=== PATIENT | male | born 1980 | race Caucasian/White ===

== ENCOUNTER 2022-09-11 09:09 | Emergency (ER) | payer MEDICAID ==
[2022-09-11] MEDS ORDERED: GEODON20 MG PO (09:26)
[2022-09-11] MEDS ORDERED: VERAPAMIL HCL40 MG PO (09:27)
[2022-09-11] MEDS ORDERED: IBU800 MG PO (09:27)
[2022-09-11] MEDS ORDERED: ALBUTEROL SULFAT8 MG INH (09:28)
--- OUTSIDE RECORDS SUMMARY | 2022-09-11 09:54 | XMS ---
PreManage Notification: JACK KIRK [employer] Att[employer] Events No recent Security Events currently on file CRITERIA MET - [facility] - [facility] - 2 Visits in 30 Days CARE PROVIDERS CARE, [facility]/Center: Primary Care 06/07/2022-Formerly [facility] - [facility] PHONE: Unknown [facility] PHONE: Unknown Luz Maria has no Care Guidelines for this patient. E.DMisty VISIT COUNT (12 MO.) 1 Mario Quinonez 1 Clay Garcia [address] [place] [address] and Science [place] 4 [place] 1 [facility] TOTAL 10 NOTE: Visits indicate total known visits. ED/UCC VISIT TRACKING (12 MO.) 09/11/2022 09:10 [facility] [place] TYPE: Emergency COMPLAINT: - BACK PAIN/NO INJ 08/24/2022 19:02 Clay Ferreira [place] TYPE: Emergency DIAGNOSES: - Radiculopathy, lumbar region - back pn - Back Pain 01/31/2022 14:32 [facility] TYPE: Emergency DIAGNOSES: 69980. Neck Pain 05474. Abnormal findings on diagnostic imaging of other specified body structures 01/31/2022 12:40 [facility] TYPE: Emergency DIAGNOSES: 13291. lump on neck 10586. Localized swelling, mass and lump, neck 01/03/2022 07:39 [facility] TYPE: Emergency DIAGNOSES: 48835. [facility] 328 39 yom 01/02/2022 05:17 [facility] TYPE: Psychiatric Emergency DIAGNOSES: - si - Other stimulant use, unspecified, uncomplicated - Unspecified psychosis not due to a substance or known physiological condition 11/21/2021 10:04 [facility] [place] TYPE: Psychiatric Emergency DIAGNOSES: - Unspecified mood [affective] disorder - Other stimulant dependence, uncomplicated - [facility] 11/21/2021 01:38 Mario Chavez [place] TYPE: Emergency DIAGNOSES: - Laceration without foreign body of scalp, initial encounter - Fall 09/11/2021 18:39 [facility] [place] TYPE: Psychiatric Emergency DIAGNOSES: - Unspecified psychosis not due to a substance or known physiological condition - Paranoid - Other stimulant abuse, uncomplicated 09/11/2021 16:43 Franny Mcne[facility] [place] TYPE: Psychiatric Emergency DIAGNOSES: - Depression, unspecified - Unspecified psychosis not due to a substance or known physiological condition - not doing well. havent had his medication over a year. - Other stimulant use, unspecified, uncomplicated INPATIENT VISIT TRACKING (12 MO.) 02/01/2022 07:48 [facility] TYPE: Ear, Nose, Throat DIAGNOSES: 52491. neck swelling 12769. Localized swelling, mass and lump, neck [email or web address]
[2022-09-11] MEDS ORDERED: CYCLOBENZAPRINE10 MG PO (10:09)
[2022-09-11] MEDS ORDERED: NEURONTIN100 MG PO (10:09)
[2022-09-11] MEDS ORDERED: PERCOCET 7.5-31 EACH PO (10:09)
== END 2022-09-11 10:50 | disposition home or self-care (01) ==
LOC: ED 09:09
DX: M54.41 Lumbago with sciatica, right side (principal); J45.909 Unspecified asthma, uncomplicated; Z88.8 Allergy status to other drugs, medicaments and biological substances; Z88.1 Allergy status to other antibiotic agents; Z79.899 Other long term (current) drug therapy
CPT/HCPCS: 96372; 99283; A9270; J1885